=== PATIENT | female | born 2000 | race Hispanic/Latino ===

== ENCOUNTER 2022-11-14 00:04 | Inpatient (IN) | payer OTHER ==
[~2022-11-14] VITALS: Ht 165.1 cm; Wt 108.9 kg
--- OUTSIDE RECORDS SUMMARY | ~2022-11-14 | XMS | Continuity of Care Document ---
Demographics + + + | Address | [address] | | | [place] [address] | + + + | Preferred Language | Unknown | + + + | Marital Status | Never | + + + | Mandaeism Affiliation | Unknown | + + + | Race | Unknown | + + + | Ethnic Group | Not or | + + + Author + + + | Author | [facility] | + + + | Organization | [facility] | + + + | Address | [address] | | | [place], [place] [address] | + + + | Phone | | + + + Care Team Providers + + + + | Care Housekeeping Supervisor Hotel Name | Role | Phone | + + + + Unavailable | Unavailable | + + + + Allergies No information. Encounters No information. Functional Status No information. Immunizations No information. Medications No information. Problems + + + + | date | description | facility | + + + + | 2022-09-25 12:04 | [facility] | [facility] | | | NORMAL PREG, UNSP, THIRD | | | | TRIMESTER | | + + + + | 2022-09-25 12:04 | 32 WEEKS GESTATION OF | [facility] | | | | | + + + + | 2022-10-24 14:23 | PELVIC AND PERINEAL PAIN | [facility] | + + + + | 2022-10-24 14:23 | 37 WEEKS GESTATION OF | [facility] | | | | | + + + + Procedures No information. Results/Labs No information. Social History +--------+ + + | date | description | facility | +--------+ + + Vital Signs No information."
[2022-11-14 00:37] LABS: HEMATOCRIT 36.4 % (35.0-50.0); HEMOGLOBIN 12.1 g/dL (12.0-18.0); MCH 29.4 (27-36); MCHC 33.3 g/dl (30-36); MCV 88.4 fl (81-99); RBC 4.12 M/ul (4.3-5.7); RDW 14.7 (10.5-15.0)
[2022-11-14 00:40] LABS: AMPHETAMINES, UR NEGATIVE (NEGATIVE); BARBITURATES, UR NEGATIVE (NEGATIVE); BENZODIAZEPINES, UR NEGATIVE (NEGATIVE); BUPRENORPHINE,UR NEGATIVE (NEGATIVE); COCAINE, UR NEGATIVE (NEGATIVE); MARIJUANA (THC), UR NEGATIVE (NEGATIVE); MDMA, UR NEGATIVE (NEGATIVE); METHADONE, UR NEGATIVE (NEGATIVE); METHAMPHETAMINE, UR NEGATIVE (NEGATIVE); OPIATES, UR NEGATIVE (NEGATIVE); OXYCODONE, UR NEGATIVE (NEGATIVE); PHENCYCLIDINE, UR NEGATIVE (NEGATIVE); TRICYCLIC ANTIDEPRESSANT, UR NEGATIVE (NEGATIVE)
[2022-11-14 01:09] VITALS: BP 133/79
[2022-11-14 01:11] LABS: ABO O; ANTIBODY SCREEN NEGATIVE; RH POSITIVE
[2022-11-14 01:13] LABS: INFLUENZA B NAA NEGATIVE (NEGATIVE); RESPIRATORY SYNCYTIAL VIR NAA NEGATIVE (NEGATIVE)
--- NOTE | 2022-11-14 15:13 | PR ---
[facility] [address] [place], [place] [address] Signed Progress Notes IP Datetime Report Generated by CPN: 11/14/2022 15:13 PROGRESS NOTES: [id number] Impression: Normal Progression of Labor; Reassuring Heart Rate Procedures: Artificial ROM; Sterile Vag Exam Plan: Continue Present Management VITAL SIGNS: [id number] Vital Signs: Reviewed; Within Normal Limits EXAM: [id number] Dilatation: 3.5 Effacement: 80 Station: -2 Contractions: Irregular MEMBRANES: [id number] Comments: Pt seen and examined. Doing well. Comfortable w/ contractions s/p epidural. Discussed AROM and vertex well applied. AROM performed w/out difficulty after verbal consent for moderate amount clear fluid. Reviewed anticipated course of labor / delivery. All questions answered. FETUS A: [id number] FHR Baseline: 130 Variability: Moderate 6-25bpm Accelerations: 15X15 Decelerations: None FHR Category: Category I Presentation: Vertex Comments on Fetus A: No evidence of metabolic acidosis FETUS B: [id number] Signing Physician: Wilner Mejia DO Copies: ~ *Electronically Signed* 11/14/22 2930 WILNER MEJIA (JAMES) DO PATIENT NAME: MARLI DANIELS PROGRESS NOTE DATE OF : 98 PHYSICIAN: WILNER MEJIA (JD) DO RPT #: [id number] REPORT IS CONFIDENTIAL AND NOT TO BE RELEASED WITHOUT AUTHORIZATION
--- NOTE | 2022-11-14 18:22 | PR ---
[facility] [address] [place], [place] [address] Signed Progress Notes IP Datetime Report Generated by CPN: 11/14/2022 18:22 PROGRESS NOTES: [id number] Impression: Normal Progression of Labor; Reassuring Heart Rate Procedures: Sterile Vag Exam Plan: Augmentation VITAL SIGNS: [id number] Vital Signs: Reviewed; Within Normal Limits EXAM: [id number] Dilatation: 3.5 Effacement: 80 Station: -2 Contractions: Difficult to trace MEMBRANES: [id number] Comments: Pt seen and examined. Doing well. Comfortable w/ contractions. Discussed no cervical change since AROM. Discussed 3 P's (passenger, passage, and sherman) and reviewed normal EFW, adequate pelvis, and indication for IUPC to assess adequacy of contractions. Verbal consent for IUPC obtained and placed w/out difficulty. Will monitor contractions; consider augmentation if indicated. FETUS A: [id number] FHR Baseline: 130 Variability: Moderate 6-25bpm Accelerations: 15X15 Decelerations: Variable FHR Category: Category II Presentation: Vertex Comments on Fetus A: No evidence of metabolic acidosis FETUS B: [id number] Signing Physician: Wilner Carmona DO Copies: ~ *Electronically Signed* 11/14/221821 WILNER CARMONA (JAMES) DO PATIENT NAME: MARLI DANIELS PROGRESS NOTE DATE OF : 98 PHYSICIAN: WILNER CARMONA (JD) DO RPT #: [id number] REPORT IS CONFIDENTIAL AND NOT TO BE RELEASED WITHOUT AUTHORIZATION
--- NOTE | 2022-11-14 22:48 | PR ---
[facility] [address] [place], [place] [address] Signed Progress Notes IP Datetime Report Generated by CPN: 11/14/2022 22:48 PROGRESS NOTES: [id number] Impression: Normal Progression of Labor; Reassuring Heart Rate Other Impressions: Slow progression of labor; ROP position Procedures: Sterile Vag Exam Plan: Augmentation Other Plans: Maternal repositioning VITAL SIGNS: [id number] Vital Signs: Reviewed; Within Normal Limits EXAM: [id number] Dilatation: 4.0 Effacement: 90 Station: -1 Contractions: 2-4 minutes, borderline adequacy MEMBRANES: [id number] Comments: Pt seen and examined. Cervix with minimal changes. Reviewed ROP position and borderline adequate contractions. Will start low dose piticoin. Reviewed adequate pelvic and EFW. Will initiate maternal position changes to encourage rotation. All questions answered FETUS A: [id number] FHR Baseline: 130 Variability: Moderate 6-25bpm Accelerations: 15X15 Decelerations: None FHR Category: Category I Presentation: Vertex Comments on Fetus A: No evidence of metabolic acidosis FETUS B: [id number] Signing Physician: Wilner Mejia DO Copies: ~ *Electronically Signed* 11/14/22 6830 WILNER MEJIA (JAMES) DO PATIENT NAME: MARLI DANIELS PROGRESS NOTE DATE OF : 98 PHYSICIAN: WILNER MEJIA DO (JD) RPT #: [id number] REPORT IS CONFIDENTIAL AND NOT TO BE RELEASED WITHOUT AUTHORIZATION
--- NOTE | 2022-11-15 05:51 | PR ---
[facility] [address] [facility] [place], [place] [address] Signed Progress Notes IP Datetime Report Generated by CPN: 11/15/2022 05:51 PROGRESS NOTES: [id number] Impression: Normal Progression of Labor; Reassuring Heart Rate Other Impressions: Slow progression of labor; ROP position Procedures: Sterile Vag Exam Plan: Continue Present Management; Anticipate Vaginal Delivery Other Plans: Maternal repositioning Informed Consent Obtain: Vaginal Delivery VITAL SIGNS: [id number] Vital Signs: Reviewed; Within Normal Limits EXAM: [id number] Dilatation: 9.0 Effacement: 100 Station: 0 Contractions: q 2 minutes MEMBRANES: [id number] Comments: Pt seen and examined. Doing well. Comfortable w/ epidural. Note significant cervical change. Will continue augmentation. Anticipate . All questions answered FETUS A: [id number] FHR Baseline: 130 Variability: Minimal - >Undetectable to <=5bpm Accelerations: 15X15 Decelerations: None FHR Category: Category II Presentation: Vertex Comments on Fetus A: No evidence of metabolic acidosis FETUS B: [id number] Signing Physician: Wilner Mejia DO Copies: ~ *Electronically Signed* 11/15/22 0551 WILNER MEJIA (JAMES) DO PATIENT NAME: MARLI DANIELS PROGRESS NOTE DATE OF : 98 PHYSICIAN: WILNER MEJIA (JD) DO RPT #: [id number] REPORT IS CONFIDENTIAL AND NOT TO BE RELEASED WITHOUT AUTHORIZATION
--- NOTE | 2022-11-15 07:27 | PR ---
[facility] [address] [place], [place] [address] Signed Progress Notes IP Datetime Report Generated by CPN: 11/15/2022 07:27 PROGRESS NOTES: [id number] Impression: Normal Progression of Labor; Reassuring Heart Rate Other Impressions: Slow progression of labor; ROP position Procedures: Sterile Vag Exam Plan: Continue Present Management; Anticipate Vaginal Delivery Other Plans: Maternal repositioning Informed Consent Obtain: Vaginal Delivery VITAL SIGNS: [id number] Vital Signs: Reviewed; Within Normal Limits EXAM: [id number] Dilatation: 10.0 Effacement: 100 Station: 0 Contractions: q 2-3 minutes MEMBRANES: [id number] Comments: Pt seen and examined. Doing well. Cx now complete. Discussed 2nd stage of labor and anticiapted . Discussed molding. Discussed indications for C/S if needed but unlikely. All questions answered FETUS A: [id number] FHR Baseline: 130 Variability: Minimal - >Undetectable to <=5bpm Accelerations: 15X15 Decelerations: None FHR Category: Category II Presentation: Vertex Comments on Fetus A: No evidence of metabolic acidosis FETUS B: [id number] Signing Physician: Wilner Mejia DO Copies: ~ *Electronically Signed* 11/15/22 07 WILNER MEJIA (JAMES) DO PATIENT NAME: MARLI DANIELS PROGRESS NOTE DATE OF : 98 PHYSICIAN: WILNER MEJIA (JD) DO RPT #: [id number] REPORT IS CONFIDENTIAL AND NOT TO BE RELEASED WITHOUT AUTHORIZATION
[2022-11-15 09:24] LABS: MCH 28.8 (27-36)
[2022-11-15 09:25] LABS: HEMATOCRIT 36.6 % (35.0-50.0); HEMOGLOBIN 11.8 g/dL (12.0-18.0); MCHC 32.1 g/dl (30-36); MCV 89.8 fl (81-99); RBC 4.08 M/ul (4.3-5.7); RDW 15.1 (10.5-15.0)
[2022-11-15 09:50] LABS: PARTIAL THROMBOPLASTIN TIME 28.1 Sec (22.9-41.3)
[2022-11-15 09:51] LABS: INR 1.02 (0.80-1.30); PROTIME 12.9 Sec (11.2-14.2)
[2022-11-16 05:34] LABS: BASOPHILS 0.5 % (0-2); EOSINOPHILS 1.5 % (0-6); HEMATOCRIT 29.7 % (35.0-50.0); HEMOGLOBIN 9.7 g/dL (12.0-18.0); LYMPHOCYTES 17.5 % (24-44); MCH 29.4 (27-36); MCHC 32.7 g/dl (30-36); MCV 89.9 fl (81-99); MONOCYTES 6.7 % (0-12); NEUTROPHILS 73.8 % (39-80); PLATELET COUNT 168 K/uL (140-440); RBC 3.31 M/ul (4.3-5.7); RDW 15.2 (10.5-15.0)
--- NOTE | 2022-11-16 08:39 | PR ---
[facility] [place] [facility] [address] [facility] [place], [place] [address] Signed PP Progress Notes Datetime Report Generated by CPN: 11/16/2022 08:39 SUBJECTIVE: [id number] Pain: Within Normal Limits Nausea/Vomiting: Denies Flatus: Yes Bowel Movement: No Vital Signs: [id number] Vital Signs: Reviewed; Within Normal Limits Cardiovascular: Normal Respiratory: Normal Abdomen/Uterus: Normal Lochia: Normal Vulva/Perineum: Normal Breasts: Not Done CVA Tenderness: Normal Extremities: Normal Incision: Not Applicable Progress: Normal Exam Comments: Fundus firm U-2 nontender IMPRESSION/PLAN/PROCEDURES: [id number] Impression: Normal Progression Plan: Discharge Progress Notes: Pt seen and examined. Doing well. Ambulating, voiding, and tolerating full diet. Pain and lochia minimal. well. No fevers/chills and leukocytosis much improved. No other concerns. Desires d/c home. Reviewed pp contraception and pt planning IUD and considering vasectomy. All questions answered. Signing Physician: Wilner Mejia DO Copies: ~ *Electronically Signed* 11/16/22 8818 WILNER MEJIA (JAMES) DO PATIENT NAME: MARLI DANIELS PROGRESS NOTE DATE OF : 98 PHYSICIAN: WILNER MEJIA) DO RPT #: [id number] REPORT IS CONFIDENTIAL AND NOT TO BE RELEASED WITHOUT AUTHORIZATION
--- NOTE | 2022-11-16 09:58 | NUR ---
BABY SLEEPING QUIETLY IN [place]. MOM UP AND TALKING ABOUT GETTING INTO SHOWER. DAD IN ROOM. BOTH DENIED NEEDS AT THIS TIME. CONSENTED TO PRAYER. PRAYED FOR GOOD BEGINNINGS AND ONGOING BLESSING.
== END 2022-11-16 12:18 | disposition home or self-care (01) | DRG 768 ==
LOC: FBC 00:04
PROVIDERS: ADMIT Obstetrics & Gynecology; ATTEND Obstetrics & Gynecology
PROC: 10E0XZZ Delivery of Products of Conception, External Approach (ICD-10-PCS; principal; 2022-11-15)
PROC: 0W3R7ZZ Control Bleeding in Genitourinary Tract, Via Natural or Artificial Opening (ICD-10-PCS; 2022-11-15)
PROC: 0KQM0ZZ Repair Perineum Muscle, Open Approach (ICD-10-PCS; 2022-11-15)
PROC: 10907ZC Drainage of Amniotic Fluid, Therapeutic from Products of Conception, Via Natural or Artificial Opening (ICD-10-PCS; 2022-11-15)
PROC: 10H07YZ Insertion of Other Device into Products of Conception, Via Natural or Artificial Opening (ICD-10-PCS; 2022-11-15)
PROC: 3E0R3BZ Introduction of Anesthetic Agent into Spinal Canal, Percutaneous Approach (ICD-10-PCS; 2022-11-15)
PROC: 00HU33Z Insertion of Infusion Device into Spinal Canal, Percutaneous Approach (ICD-10-PCS; 2022-11-15)
DX: O48.0 Post-term pregnancy (principal); Z37.0 Single live birth; O72.1 Other immediate postpartum hemorrhage; O76 Abnormality in fetal heart rate and rhythm complicating labor and delivery; Z20.822 Contact with and (suspected) exposure to COVID-19; O70.1 Second degree perineal laceration during delivery; O77.0 Labor and delivery complicated by meconium in amniotic fluid; O99.214 Obesity complicating childbirth; O99.344 Other mental disorders complicating childbirth; F41.9 Anxiety disorder, unspecified; Z3A.40 40 weeks gestation of pregnancy
CPT/HCPCS: 01960; 36415; 85025; 85027; 85060; 85384; 85610; 85730; 86850; 86900; 86901; 87502; A9270; J2210; J2405; J2795; J3010; J7121; U0002